=== PATIENT | male | born 1995 | race African-American/Black ===

== ENCOUNTER 2017-07-06 17:56 | Emergency (ER) | payer OTHER ==
[2017-07-06 18:02] VITALS: BP 123/64; PULSE 104; BMI 19.7
[2017-07-06] MEDS ORDERED: IBUPROFEN 600 MG TABLET (FP) PO ONE ×2 (18:02→18:19)
--- NOTE | 2017-07-06 18:02 | PDOC ---
Rapid Medical Evaluation Time Seen by Provider: 07/06/17 17:59 Medical Evaluation: Allergies Allergy/AdvReac Type Severity Reaction Status Date / Time No Known Allergies Allergy Verified 07/06/17 17:59 07/06/17 17:59 The patient presents with a chief complaint of: [Fever, chills, bodyaches, since ] I have performed a brief in-person evaluation of this patient. Pertinent physical exam findings: Temp 102.6, HR 107, Lungs clear, nondiaphoretic, Abdomen soft nontender, nondistended.] I have ordered the following: [Motrin, rapid influenza] The patient will proceed to the ED for further evaluation. Discharge Disposition - Diagnosis Fever - Referrals - Patient Instructions - Post Discharge Activity
--- NOTE | 2017-07-06 18:33 | PDOC ---
History of Present Illness - General Chief Complaint: Cold Symptoms Stated Complaint: FEVER Time Seen by Provider: 07/06/17 17:59 History Source: Patient - History of Present Illness Timing/Duration: reports: other Associated Symptoms: reports: fever/chills, headache, muscle aches. denies: cough, dizziness, earache, facial pain, nasal congestion, nasal drainage, shortness of breath, sore throat, wheezing Past History - Past Medical History Allergies/Adverse Reactions: Allergies Allergy/AdvReac Type Severity Reaction Status Date / Time No Known Allergies Allergy Verified 07/06/17 17:59 Home Medications: Ambulatory Orders NK [No Known Home Medication] 07/06/17 Cardiac Disorders: Yes (SINOSCOPE SYNDROME) COPD: No - Suicide/Smoking/Psychosocial Hx Smoking History: Never smoked Have you smoked in the past 12 months: No Information on smoking cessation initiated: No Hx Alcohol Use: No Drug/Substance Use Hx: No Substance Use Type: None Review of Systems - Review of Systems Constitutional: Yes: Fever HEENTM: No: Ear Pain, Throat Pain Respiratory: No: Cough, Shortness of Breath ABD/GI: No: Diarrhea, Nausea, Vomiting *Physical Exam - Vital Signs Last Vital Signs Temp Pulse Resp BP Pulse Ox 102.9 F H 104 H 14 123/64 100 07/06/17 18:00 07/06/17 18:00 07/06/17 18:00 07/06/17 18:00 07/06/17 18:00 - Physical Exam General Appearance: Yes: Appropriately Dressed. No: Apparent Distress HEENT: positive: Normal ENT Inspection, Normal Voice. negative: Scleral Icterus (R), Scleral Icterus (L) Neck: positive: Supple. negative: Lymphadenopathy (R), Lymphadenopathy (L) Respiratory/Chest: positive: Lungs Clear. negative: Normal Breath Sounds, Respiratory Distress Cardiovascular: positive: S1, S2, Tachycardia Gastrointestinal/Abdominal: positive: Soft. negative: Tender Integumentary: positive: Dry, Warm Neurologic: positive: Fully Oriented, Alert, Normal Mood/Affect ED Treatment Course - Medications Given in the ED: ED Medications Discontinued Medications Generic Name Dose Route Start Last Admin Trade Name Freq PRN Reason Stop Dose Admin Ibuprofen 600 mg 07/06/17 18:02 07/06/17 18:21 Motrin - PO 07/06/17 18:03 600 mg ONCE ONE Administration Medical Decision Making - Medical Decision Making 07/06/17 18:31 22 year-old male, no significant history here with body aches, headaches and fever 3 days. No ear pain, sore throat, cough, shortness of breath, vomiting, diarrhea or rash. No known sick contacts or recent travel. Patient well- appearing but febrile to 102 and tachycardia to 104 with unremarkable exam otherwise. Motrin given at triage. Flu swab pending 07/06/17 19:44 Flu test negative. Vitals improved. Will dc with supportive treatment *DC/Admit/Observation/Transfer Diagnosis at time of Disposition: Viral syndrome - Discharge Dispostion Disposition: HOME Condition at time of disposition: Improved - Referrals - Patient Instructions Printed Discharge Instructions: DI for Viral Syndrome Additional Instructions: Your flu test was negative Rest, drink plenty of fluids and take Motrin or Tylenol as needed for pain and/ or fever - Post Discharge Activity
[2017-07-06 19:32] VITALS: TEMP 100.3
== END 2017-07-06 19:47 | disposition home or self-care (01) ==
LOC: JERFT 17:56
DX: B34.9 Viral infection, unspecified (principal)
CPT/HCPCS: 87804; 99281-25